=== PATIENT | female | born 1970 | race Two or more races ===

== ENCOUNTER 2017-08-23 18:08 | Emergency (ER) | payer MEDICAID ==
[~2017-08-23] VITALS: Ht 160 cm; Wt 81.6 kg
[2017-08-23] MEDS ORDERED: Albuterol ud Inhalation HHN ONE (19:15)
--- NOTE | 2017-08-23 19:17 | Emergency Room Report ---
History of Present Illness General Chief Complaint: Earache Source: Patient Present Illness HPI 47YO female presents emergency department complaining of 9/10 in severity right ear pain with fevers, nasal congestion, cough and wheezing x2 days. Patient's issues a history of asthma and has not purulent home. Patient denies neck pain or stiffness she states she did not receive her flu vaccination this year she denies ill contacts or recent travel.Denies CP, Palpitations, LOC, AMS , dizziness, Changes in Vision, Sensation, paresthesias, or a sudden severe headache. Allergies: Coded Allergies: No Known Allergies (Unverified , 08/23/17) Patient History Past Medical History: see triage record Past Surgical History: none Pertinent Family History: none Last Menstrual Period: 08/05/17 Now: No : 2 Para: 2 Reviewed Nursing Documentation: PMH: Agreed, PSxH: Agreed Nursing Documentation-PMH Past Medical History: No History, Except For Hx Asthma: Yes Review of Systems All Other Systems: negative except mentioned in HPI Physical Exam Vital Signs Date Time Temp Pulse Resp B/P (MAP) Pulse Ox O2 Delivery O2 Flow Rate FiO2 08/23/17 18:46 98.1 70 16 146/80 99 Room Air Sp02 EP Interpretation: reviewed, normal General Appearance: no apparent distress, alert, GCS 15, non-toxic Head: normocephalic, atraumatic Eyes: bilateral eye normal inspection, bilateral eye PERRL ENT: hearing grossly normal, normal pharynx, no angioedema, normal voice, uvula midline, nasal congestion, other - Right TM is erythematous and bulging Neck: full range of motion Respiratory: chest non-tender, speaking full sentences, wheezing - bilateral wheezes Cardiovascular #1: regular rate, rhythm, no edema, normal capillary refill Gastrointestinal: non tender, soft Rectal: deferred Musculoskeletal: back normal, gait/station normal, normal range of motion, non- tender Neurologic: alert, oriented x3, responsive, motor strength/tone normal, sensory intact, speech normal Skin: normal color, no rash, warm/dry, well hydrated Lymphatic: no adenopathy Medical Decision Making PA Attestation Dr. castillo is my supervising Physician whom patient management has been discussed with. Diagnostic Impression: Primary Impression: Otitis media Qualified Codes: H65.01 - Acute serous otitis media, right ear Additional Impression: Asthma exacerbation Qualified Codes: J45.901 - Unspecified asthma with (acute) exacerbation ER Course 47YO female presents emergency department complaining of 9/10 in severity right ear pain with fevers, nasal congestion, cough and wheezing x2 days. Patient's issues a history of asthma and has not purulent home. Patient denies neck pain or stiffness she states she did not receive her flu vaccination this year she denies ill contacts or recent travel.Denies CP, Palpitations, LOC, AMS , dizziness, Changes in Vision, Sensation, paresthesias, or a sudden severe headache. Ddx considered but are not limited to OM, OE, mastoiditis, TM perforation, FB, URI, asthma, bronchitis, PNA just to name a few. Vital signs: are WNL, pt. is afebrile H&PE are most consistent with otitis media of the right ear, and URI causing exacerbation of her asthma. ORDERS: none required at this time, the diagnosis is clinical -OTOSCOPY: Right TM is erythematous and bulging ED INTERVENTIONS: -Albuterol HHN -Tylenol PO DISCHARGE: At this time pt. is stable for d/c to home. With PO ABX. Will provide printed patient care instructions, and any necessary prescriptions. Care plan and follow up instructions have been discussed with the patient prior to discharge. Last Vital Signs Date Time Temp Pulse Resp B/P (MAP) Pulse Ox O2 Delivery O2 Flow Rate FiO2 08/23/17 18:46 98.1 70 16 146/80 99 Room Air Disposition: HOME, SELF-CARE Condition: Stable Scripts Codeine/Promethazine Hcl* (PROMETHAZINE-CODEINE SYRUP*) 118 Ml Syrup 5 ML ORAL Q6H Y for For Cough, #120 ML 0 Refills Prov: Harmony Hamlin P.A. 08/23/17 Albuterol Sulfate* (ALBUTEROL SULFATE MDI*) 8.5 Gm Hfa.aer.ad 2 PUFF INH Q3H, #1 INH 0 Refills Prov: Harmony Hamlin P.A. 08/23/17 Acetaminophen* (TYLENOL EXTRA STRENGTH*) 500 Mg Tablet 500 MG ORAL Q6H Y for Mild Pain/Temp > 100.5, #20 TAB 0 Refills Prov: Harmony Hamlin P.A. 08/23/17 [auralgan generic] No Conflict Check 2 DROP OT Q6HR for For Pain, #14 ML Prov: Harmony Hamlin 08/23/17 Amoxicillin/Potassium Clav 875-125* (AUGMENTIN 875-125 TABLET*) 1 Each Tablet 1 TAB ORAL TWICE A DAY for 10 Days, #20 TAB Prov: Harmony Hamlin 08/23/17 Patient Instructions: Otitis Media, Adult, [id number] Additional Instructions: Take medications as directed. Follow up with a Primary Care Provider in 3-5 days, even if your symptoms have resolved. --Please review list of primary care clinics, if you do not already have a primary care provider Return sooner to ED if new symptoms occur, or current symptoms become worse. - Please note that this Emergency Department Report was dictated using [employer] recorder technology software, occasionally this can lead to erroneous entry secondary to interpretation by the dictation equipment. Harmony Hamlin Aug 23, 2017 19:17
[2017-08-23] MEDS ORDERED: TYLENOL EXTRA500 MG ORAL (19:23)
[2017-08-23] MEDS ORDERED: PROMETHAZINE-C118 M1 ORAL (19:23)
[2017-08-23] MEDS ORDERED: AUGMENTIN 875-1 EAC1 ORAL (19:23)
[2017-08-23] MEDS ORDERED: ALBUTEROL SULF8.5 GM INH (19:23)
[2017-08-23] MEDS ORDERED: auralgan generic OT (19:23)
[2017-08-23 19:37] VITALS: BP 136/85
[2017-08-23 19:38] VITALS: BP 136/85
== END 2017-08-23 19:39 | disposition home or self-care (01) ==
LOC: EMR 18:30
DX: H66.91 Otitis media, unspecified, right ear (principal); J45.901 Unspecified asthma with (acute) exacerbation
CPT/HCPCS: 94640; 94664; 99284